=== PATIENT | female | born 1945 | race Caucasian/White ===

== ENCOUNTER → 2017-08-20 | Outpatient (CLI) | payer MEDICARE ==
[2017-08-20 18:20] LABS: TROPONIN-I < 0.012 ng/ml (0.00-0.12)
== END | disposition home or self-care (01) ==
LOC: LAB 17:19
DX: R07.9 Chest pain, unspecified (principal)
CPT/HCPCS: 84484

== ENCOUNTER 2017-10-27 18:37 | Emergency (ER) | payer MEDICARE ==
[2017-10-27] MEDS: morphine 2 MG INJ IV (21:52)
[2017-10-27] MEDS: morphine 4 MG/ML VIAL IV (22:40)
== END 2017-10-28 00:07 | disposition home or self-care (01) ==
LOC: FTE 10-28 00:07
DX: S52.501A Unspecified fracture of the lower end of right radius, initial encounter for closed fracture (principal); S52.614A Nondisplaced fracture of right ulna styloid process, initial encounter for closed fracture; I10 Essential (primary) hypertension; W18.39XA Other fall on same level, initial encounter; Y92.9 Unspecified place or not applicable; Z79.82 Long term (current) use of aspirin
CPT/HCPCS: 29125; 73090-RT; 73110-RT; 73130-RT; 96374; 96376; 99284-25